=== PATIENT | male | born 1985 | race Hispanic/Latino ===

== ENCOUNTER 2023-10-09 09:55 | Day surgery (SDC) | payer BC, OTHER ==
[2023-10-08 16:42] LABS: Anion Gap 6.9 mEq/L (5.0-15.0); Potassium 3.9 mEq/L (3.5-5.1)
[2023-10-09] MEDS: NA CHLORIDE 0.9% 1,000 ML ONE (10:18)
[2023-10-09] MEDS ORDERED: LIDOCAINE 1% MPF 2 ML AMPULE ONE (11:28)
[2023-10-09] MEDS ORDERED: MIDAZOLAM HCL 2 MG/2 ML INJ ONE (11:28)
[2023-10-09] MEDS ORDERED: propofoL 200 MG/20 ML VIAL IV ONE (11:28)
[2023-10-09 13:39] VITALS: BP 115/68; TEMP 97.6; O2SAT 98
--- NOTE | 2023-10-09 14:15 | EKG ---
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
== END 2023-10-09 13:16 | disposition home or self-care (01) ==
LOC: OR 09:55
PROVIDERS: ATTEND Surgery
PROC: 0DJ08ZZ Inspection of Upper Intestinal Tract, Via Natural or Artificial Opening Endoscopic (ICD-10-PCS; principal; 2023-10-09 12:00)
DX: Z01.818 Encounter for other preprocedural examination (principal); E66.01 Morbid (severe) obesity due to excess calories; R68.89 Other general symptoms and signs; K44.9 Diaphragmatic hernia without obstruction or gangrene; K29.30 Chronic superficial gastritis without bleeding
CPT/HCPCS: 93005; 80048; 36415; 82947; 43235; J2704; J2250; J7030